=== PATIENT | female | born 1965 | race Caucasian/White ===

== ENCOUNTER 2020-03-24 22:53 | Inpatient (IN) ==
[2020-03-24] MEDS ORDERED: methylPREDNISolone SOD SUC 125 MG/2 ML VIAL IV STA (23:13)
[2020-03-24] MEDS ORDERED: cefTRIAXone 1,000 MG in SODIUM CHLORIDE 0.9% 100 ML IV STA (23:13)
[2020-03-24] MEDS ORDERED: ONDANSETRON 4 MG/2 ML VIAL IV STA (23:13)
[2020-03-24] MEDS ORDERED: ALBUTEROL NEB SOLN 5 MG/ML 20 ML/BOTTLE CONT NEB SCH (23:30)
[2020-03-24] MEDS ORDERED: LIDOCAINE 2% 20 ML VIAL RESP TX STA (23:41)
[2020-03-24] MEDS ORDERED: LIDOCAINE 2%/EPI 20 ML VIAL ONE (23:45)
[2020-03-24] MEDS ORDERED: LIDOCAINE 2% 20 ML VIAL ONE (23:46)
[2020-03-24 23:50] LABS: Basophils # 0.1 10*3/uL (0.0-0.2); Basophils % 0.6 % (0.0-0.8); Eosinophils # 0.1 10*3/uL (0.0-0.87); Eosinophils % 1.7 % (0.00-10.9); Hematocrit 45.2 VOL% (35.7-47.0); Hemoglobin 13.9 GM/DL (12.0-16.0); Immature Granulocytes % 0.2 %; Immature Granulocytes Absolute 0.02 #; Lymphocytes # 1.7 10*3/uL (1.4-4.0); Lymphocytes % 21.4 % (21.3-54.2); Mean Corpuscular HGB Conc 30.8 GM/DL (32-36); Mean Corpuscular Volume 97.2 FL (87-102); Mean Platelet Volume 10.5 FL (9.6-12.0); Monocytes % 4.8 % (1.7-12.7); Neutrophils % 71.3 % (38.7-73.9); Platelet Count 202 T/CUMM (130-400); Red Blood Count 4.65 MC/CUMM (3.8-5.5); Red Cell Distribution Width 13.9 % (9.3-17.3); White Blood Count 8.1 T/CUMM (4-12)
[2020-03-25] LABS: INR 0.9
[2020-03-25 00:04] LABS: INR 0.9; PT Patient Result 9.9 SECS (9.8-11.9); Partial Thromboplastin Time 29.2 SECS (23.9-33.8)
[2020-03-25 00:09] LABS: Alanine Aminotransferase 16 U/L (13-56); Alkaline Phosphatase 68 U/L (45-117); Aspartate Amino Transferase 14 U/L (0-37); Bilirubin,Total < 0.39 MG/DL (0.2-1.0); Blood Urea Nitrogen 12 MG/DL (7-18); Carbon Dioxide 30 MMOL/L (21-32); Estimated Glom Filtration Rate 91 ML/MIN; Glucose 97 MG/DL (74-106); Osmolality,Calculated 278.4 MOS/KG (273-304); Potassium 4.3 MMOL/L (3.5-5.1); Sodium 140 MMOL/L (136-145); Total Protein 7.5 G/DL (6.4-8.3)
[2020-03-25] MEDS ORDERED: ONDANSETRON 4 MG/2 ML VIAL IV STA (00:16)
[2020-03-25] MEDS ORDERED: MEPERIDINE 25 MG/1 ML VIAL IV STA (00:16)
[2020-03-25] MEDS ORDERED: HYDROmorphone 2 MG/1 ML VIAL IM ONE (00:16)
[2020-03-25 00:25] LABS: ABG Base Excess 1.1 MMOL/L (-2.5-2.5); ABG HCO3 25.3 MMOL/L (20-26); ABG Oxygen Saturation 95.7 % (95-100); ABG PCO2 52.4 MM HG (35-48); ABG PH 7.337 (7.35-7.45); ABG PO2 82.9 MM HG (80-95); ABG TCO2 24.6 MMOL/L (23-27)
[2020-03-25] MEDS ORDERED: GLUCAGON 1 MG VIAL IM PRN (01:26)
[2020-03-25] MEDS ORDERED: DEXTROSE 50% 25 GM/50 ML VIAL IV PRN (01:26)
[2020-03-25] MEDS ORDERED: ACETAMINOPHEN 325 MG TABLET PO PRN (01:40)
[2020-03-25] MEDS ORDERED: ONDANSETRON 4 MG/2 ML VIAL IV PRN (01:40)
[2020-03-25] MEDS ORDERED: diphenhydrAMINE CAP 25 MG CAPSULE PO PRN (01:40)
[2020-03-25] MEDS ORDERED: guaiFENesin/DM ER 600-30 MG TABLET PO PRN (01:40)
[2020-03-25] MEDS ORDERED: hydrALAZINE 20 MG/1 ML VIAL IV PRN (01:40)
[2020-03-25] MEDS ORDERED: NICOTINE 21 MG/24 HR PATCH TRANSDERM PRN (01:40)
[2020-03-25] MEDS ORDERED: MORPHINE 4 MG/1 ML VIAL IV PRN (01:40)
[2020-03-25] MEDS: SODIUM CHLORIDE 0.9% 1,000 ML IV SCH ×4 (03:00→22:00)
[2020-03-25 03:11] LABS: Bilirubin,Urine Negative (Negative); Blood, Urine Negative (Negative); Glucose,Urine (UA) Negative (Negative); Ketones,Urine Negative (Negative); Nitrite,Urine Negative (Negative); Protein,Urine Negative; Urine Appearance CLEAR (Clear); Urine Color Yellow (Yellow); Urine Specific Gravity 1.014 (1.001-1.035); Urine Urobilinogen < 2.0 EU/DL (0.2-1.0)
[2020-03-25 03:21] LABS: Barbiturates Screen,Urine Negative (Negative); Benzodiazepines Screen,Urine Negative (Negative); Cannabinoid Screen,Urine Negative (Negative); Opiate Screen,Urine Negative (Negative); Phencyclidine Screen,Urine Negative (Negative)
[2020-03-25] MEDS: ALBUTEROL/IPRATROPIUM 3 ML NEB RESP TX SCH ×3 (07:15→19:39)
[2020-03-25] MEDS ORDERED: ALBUTEROL/IPRATROPIUM 3 ML NEB RESP TX PRN (09:28)
[2020-03-25] MEDS: methylPREDNISolone SOD SUC 40 MG/1 ML VIAL IV SCH ×2 (09:52→20:48)
[2020-03-26] MEDS: ALBUTEROL/IPRATROPIUM 3 ML NEB RESP TX SCH ×4 (00:30→19:35)
[2020-03-26] MEDS: methylPREDNISolone SOD SUC 40 MG/1 ML VIAL IV SCH ×2 (09:59→20:19)
[2020-03-26] MEDS: PANTOPRAZOLE 40 MG TABLET PO SCH (15:16)
[2020-03-26] MEDS: SODIUM CHLORIDE 0.9% 1,000 ML IV SCH ×2 (18:16→18:37)
[2020-03-27] MEDS: ALBUTEROL/IPRATROPIUM 3 ML NEB RESP TX SCH ×4 (00:42→19:33)
[2020-03-27] MEDS: SODIUM CHLORIDE 0.9% 1,000 ML IV SCH ×3 (03:25→23:36)
[2020-03-27] MEDS: methylPREDNISolone SOD SUC 40 MG/1 ML VIAL IV SCH ×2 (10:47→20:59)
[2020-03-27] MEDS: PANTOPRAZOLE 40 MG TABLET PO SCH (10:47)
[2020-03-28] MEDS: ALBUTEROL/IPRATROPIUM 3 ML NEB RESP TX SCH ×2 (01:09→07:45)
[2020-03-28] MEDS: SODIUM CHLORIDE 0.9% 1,000 ML IV SCH ×2 (01:57→10:00)
[2020-03-28] MEDS: PANTOPRAZOLE 40 MG TABLET PO SCH (09:32)
[2020-03-28] MEDS: methylPREDNISolone SOD SUC 40 MG/1 ML VIAL IV SCH (09:33)
[2020-03-28 20:00] VITALS: BP 110/73
== END 2020-03-28 14:40 | disposition home or self-care (01) | DRG 191 ==
LOC: EDBD → EDUNIT# → N.ED 22:53 → N.EDINP 03-25 01:26 → N.3E 03-25 08:50
PROVIDERS: ADMIT Internal Medicine; ATTEND Internal Medicine